=== PATIENT | male | born 2000 | race African-American/Black ===

== ENCOUNTER 2021-10-18 17:05 | Emergency (ER) | payer MEDICAID ==
[~2021-10-18] VITALS: Ht 170.2 cm; Wt 64.0 kg
[2021-10-18 17:13] VITALS: BP 130/80
== END 2021-10-18 18:10 | disposition home or self-care (01) ==
LOC: ER 17:05
DX: R40.0 Somnolence (principal); F12.90 Cannabis use, unspecified, uncomplicated
CPT/HCPCS: 99283